=== PATIENT | female | born 1975 | race Two or more races ===

== ENCOUNTER → 2018-03-08 | Outpatient (CLI) | payer OTHER ==
--- NOTE | 2018-03-08 16:09 | RAD ---
Transabdominal pelvic sonography Clinical indications: Abnormal uterine bleeding. FINDINGS: The uterus is anteverted in position. The longitudinal and AP and transverse dimensions of the uterus are 12.5 cm and 6.1 cm and 7.4 cm respectively. No uterine mass or fibroid is seen. The endometrial canal measures 10 mm in thickness which is normal. The right ovary measures 3.3 cm and 2.1 cm and 3.4 cm in size and contains a 2.3 cm cyst. Color Doppler flow is seen within the right ovary. The left ovary measures 5.2 cm and 4.2 cm and 3.6 cm in size. There is a 4.1 cm cyst of the left ovary. Color Doppler flow is seen within the left ovary. No adnexal mass is seen. No free fluid is evident. IMPRESSION: Bilateral ovarian cysts. Electronically signed by: Jv Moreira MD (03/08/2018 4:05 PM) [id number]
== END | disposition home or self-care (01) ==
LOC: US 14:40
PROVIDERS: ATTEND Obstetrics & Gynecology
DX: N83.201 Unspecified ovarian cyst, right side (principal); N83.202 Unspecified ovarian cyst, left side
CPT/HCPCS: 76856

== ENCOUNTER → 2018-10-28 | Outpatient (CLI) | payer OTHER ==
--- NOTE | 2018-10-28 14:44 | RAD ---
EXAM: ULTRASOUND PELVIS INDICATION: Abnormal uterine bleeding. Last menstrual period was 10/21/2018 COMPARISON: None available. TECHNIQUE: Transabdominal sonography was performed. FINDINGS: The uterus measures 12.6 x 7.1 x 6.2 cm. The endometrium measures 0.8 cm. There is no focal myometrial abnormality The right ovary measures 3.2 x 2.8 x 2.2 cm. The left ovary measures 2.9 x 2.5 x 1.5 cm. Flow seen to both ovaries. No definite adnexal mass is identified. There is no free fluid. IMPRESSION: 1. Essentially normal sonographic survey of the uterus and adnexa. 2. No evidence for ovarian torsion or adnexal mass. Electronically signed by: David Lopez MD (10/28/2018 2:42 PM) [facility]
== END | disposition home or self-care (01) ==
LOC: US 07:03
PROVIDERS: ATTEND Obstetrics & Gynecology
DX: N94.2 Vaginismus (principal); N93.9 Abnormal uterine and vaginal bleeding, unspecified
CPT/HCPCS: 76856